=== PATIENT | female | born 1955 | race Caucasian/White ===

== ENCOUNTER 2020-08-26 15:57 | Outpatient (REF) | payer OTHER, SELFPAY | END 2020-08-26 15:58 | disposition home or self-care (01) | LOC: HO.LAB 15:57 | PROVIDERS: Visit Provider Internal Medicine | DX: Z20.828 Contact with and (suspected) exposure to other viral communicable diseases (principal) | CPT/HCPCS: 87635 ==

== ENCOUNTER 2020-12-10 09:45 | Outpatient (REF) | payer OTHER, SELFPAY ==
--- NOTE | 2020-12-10 | MM_ITS ---
EXAMINATION: MM SCREENING DIGITAL BREAST TOMOSYNTHESIS, BILATERAL CLINICAL INFORMATION: Screening. Asymptomatic. The lifetime risk of breast cancer based on the Tyrer-Cuzick Model is 6%. COMPARISON: Mammography: 12/07/2019, 08/06/2016 TECHNIQUE: Digital breast tomosynthesis is performed in both the craniocaudal and mediolateral oblique views along with computer-aided detection (CAD). Synthesized 2D images are generated from the tomosynthesis. FINDINGS: The breasts are heterogeneously dense, which may obscure small masses (ACR BI-RADS breast composition Category c). There are no significant masses, abnormal calcifications, or other abnormalities. Parenchymal pattern is similar to prior exams. No significant changes. The axilla and skin contours are unremarkable. MM/MM tomosynthesis screening BI IMPRESSION: No mammographic evidence of malignancy. ASSESSMENT: BI-RADS 1: Negative RECOMMENDATION: Routine annual mammography screening. This patient's information was entered into a reminder system with a target due date for their next mammogram.
== END 2020-12-10 09:46 | disposition home or self-care (01) ==
LOC: HO.MAMMO 09:45
PROVIDERS: Visit Provider Family Medicine
DX: Z12.31 Encounter for screening mammogram for malignant neoplasm of breast (principal)
CPT/HCPCS: 77063; 77067

== ENCOUNTER 2024-08-28 12:17 | Outpatient (AMB) | payer OTHER, SELFPAY ==
--- NOTE | 2024-08-28 12:50 | AM.OFFWIN_ITS ---
Intake Vital Signs 08/28/24 12:51 Height 5 ft 2 in Weight 150 lb BMI 27.4 BP 140/84 H Blood Pressure Location Rt brachial Position Sitting Pulse 83 Pulse Source Pulse Oximeter Pulse Oximetry (%) 98 Oxygen Delivery Method Room Air Intake Visit Reasons: [employer] ear flush/clogged ear Intake Note: Patient here for bilat ear pain. Patient Tobacco Use Status: Never used Tobacco Allergies No Known Allergies Allergy (Verified 08/28/24 12:52) Do you need a note to return to daycare/school/sports/work: No HPI [employer] ear flush/clogged ear HPI Details This note is constructed using voice recognition software. While every effort has been made to ensure accuracy, road hogger operator errors may have been included. The patient is a 69 year old female who presents to the clinic today with ears clogged, right more than left. She notes that she has had a history of this, and typically gets her ears flushed when this happens. She denies fever, chills, cough, shortness of breath, or any other URI symptoms. She reports that she is having some difficulty hearing as a result of the ear clogged. [facility] Social History Patient Tobacco Use Status: Never used Tobacco Review of Systems Const All systems reviewed & are unremarkable except as noted in HPI and below Physical Exam Vital Signs: Last Vital Signs Pulse 83 08/28/24 12:51 BP 140/84 H 08/28/24 12:51 Pulse Ox 98 08/28/24 12:51 Oxygen Delivery Method Room Air 08/28/24 12:51 BMI result Body Mass Index 27.4 Const General: cooperative, healthy appearing, comfortable and no acute distress Orientation/consciousness: patient oriented x3 HEENT Head: Yes normal to inspection and Yes normocephalic Ears: EAC's normal, mastoids normal and unable to visualize TM (cerumen impaction) bilaterally General nose exam: Normal external nose present Face and sinus: Yes normal facial exam Resp Effort & Inspection: normal respiratory effort and able to speak in complete sentences Auscultation: clear to auscultation bilaterally Cardio Jugular venous distension: no JVD Rate: regular rate Rhythm: regular rhythm Heart sounds: S1 normal heart sound present, S2 normal heart sound present, no click, no gallops, no murmurs and no rubs Neuro General: patient oriented x3 Office Procedures Cerumen Removal From which ear canal was the cerumen removed: bilateral Removal: irrigation Notes: patient tolerated procedure well, no complications and ear canal clear [id number] Irrigation/Lavage Assessment & Plan Assessment & Plan (1) Impacted cerumen of both ears: Code(s): H61.23 - Impacted cerumen, bilateral Plan: Advised Debrox for preventative measures to use often cerumen for any future events. The patient tolerated irrigation in office today. Follow up as needed with repeat symptoms. (2) Hearing loss due to cerumen impaction: Code(s): H61.20 - Impacted cerumen, unspecified ear Qualifiers: Laterality: right Qualified Code(s): H61.21 - Impacted cerumen, right ear Plan: Improvement with irrigation. See impacted cerumen. Plan See above for full details and plan. Coding Level of Care Code Est Pt Level 4 (53095) Diagnoses Impacted cerumen of both ears H61.23 Hearing loss of right ear due to cerumen impaction H61.21 Laterality: right CPT Codes Office Procedure - CPT: 78431-Fwr Irrigation/Lavage ([id number])
[2024-08-28 12:51] VITALS: BP 140/84; PULSE 83; O2SAT 98; BMI 27.4
== END 2024-08-28 14:59 | disposition home or self-care (01) ==
PROVIDERS: PCP Psychiatry & Neurology Psychiatry; Visit Provider Registered Nurse
DX: H61.23 Impacted cerumen, bilateral (principal)

== ENCOUNTER → 2024-08-28 12:17 | Outpatient (BNVA) | payer OTHER, SELFPAY | PROVIDERS: PCP Psychiatry & Neurology Psychiatry; Visit Provider Registered Nurse | DX: H61.23 Impacted cerumen, bilateral (principal) | CPT/HCPCS: 69209 ==